=== PATIENT | female | born 1970 | race Caucasian/White ===

== ENCOUNTER 2017-08-02 12:02 | Emergency (ER) | payer BC, OTHER ==
[2017-08-02 12:10] VITALS: BP 108/54; PULSE 71; TEMP 98.1; BMI 28.5
--- NOTE | 2017-08-02 12:57 | PDOC ---
History of Present Illness - General Chief Complaint: Facial Droop Stated Complaint: FACIAL DROOP Time Seen by Provider: 08/02/17 12:25 History Source: Patient Exam Limitations: No Limitations - History of Present Illness Initial Comments: 08/02/17 12:52 This is a 46-year-old female with past medical history of Churchill's palsy who presents to the emergency department with left-sided facial droop since 9:10 AM. Patient states she woke up felt a sharp shooting pain in her left mandible and then reported progressive facial droop the left side. Patient denies change in speech. Patient does report numbness to the left side of the face and occasional numbness to her left arm and leg. Patient states for the past week she's been experiencing "congestion to her right ear for which she was supposed to be taking steroids. She has not taken steroids, she is due for surgery to remove a cyst on her left hand this Friday. She denies fevers, chills, blurry vision. Past History - Past Medical History Allergies/Adverse Reactions: Allergies Allergy/AdvReac Type Severity Reaction Status Date / Time No Known Allergies Allergy Verified 08/02/17 12:09 Home Medications: Ambulatory Orders NK [No Known Home Medication] 08/02/17 COPD: No Psychiatric Problems: Yes (ANXIETY) Other medical history: bells palsey - Suicide/Smoking/Psychosocial Hx Smoking History: Never smoked Have you smoked in the past 12 months: Yes Number of Cigarettes Smoked Daily: 0 (Smokes the water pipe) Information on smoking cessation initiated: No 'Breaking Loose' booklet given: 01/07/14 Hx Alcohol Use: No Drug/Substance Use Hx: No Substance Use Type: None Hx Substance Use Treatment: No Review of Systems - Review of Systems Able to Perform ROS?: Yes Is the patient limited Nepalese proficient: No Constitutional: No: Symptoms Reported HEENTM: Yes: See HPI Respiratory: No: Symptoms reported Cardiac (ROS): No: Symptoms Reported ABD/GI: No: Symptoms Reported : No: Symptoms Reported Musculoskeletal: No: Symptoms Reported Integumentary: No: Symptoms Reported Neurological: Yes: See HPI Endocrine: No: Symptoms Reported Hematologic/Lymphatic: No: Symptoms Reported *Physical Exam - Vital Signs Last Vital Signs Temp Pulse Resp BP Pulse Ox 98.1 F 71 20 108/54 99 08/02/17 12:03 08/02/17 12:03 08/02/17 12:03 08/02/17 12:03 08/02/17 12:03 - Physical Exam General Appearance: Yes: Appropriately Dressed. No: Apparent Distress Neck: positive: Trachea midline, Supple, Other (Left facial droop) Respiratory/Chest: positive: Lungs Clear, Normal Breath Sounds. negative: Respiratory Distress, Accessory Muscle Use Cardiovascular: positive: Regular Rhythm, Regular Rate. negative: Murmur Gastrointestinal/Abdominal: positive: Tender, Soft. negative: Normal Bowel Sounds Musculoskeletal: positive: Normal Inspection. negative: CVA Tenderness Extremity: positive: Normal Inspection Integumentary: positive: Normal Color, Dry, Warm Neurologic: positive: Fully Oriented, Alert, Normal Mood/Affect, Normal Response , Motor Strength 5/5, Responsive, Facial Droop, Other (Full sensation to bilateral upper and lower extremities to both medial and lateral aspects.) ED Treatment Course - RADIOLOGY Radiology Studies Ordered: Category Date Time Status HEAD CT WITHOUT CONTRAST [CT] Stat CT Scan 08/02/17 12:44 Ordered Medical Decision Making - Medical Decision Making 08/02/17 13:00 A/P: 46-year-old woman with past medical history Churchill's palsy presents emergency Department with left-sided facial droop starting at 9:10 AM. Cranial nerve examination within normal with the exception of facial nerve. Left facial palsy present. Patient with inability to fully close eyes against resistance. Full sensation noted to bilateral face Gait steady. 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 No erythema present. Left TM is within normal limits. External auditory canals clear and free of erythema or exudates. Lungs clear to auscultation bilaterally. NIHSS-0 Diagnosis Churchill's palsy Explained to the patient's that given that she had prodromal symptoms and neurodeficits are limited to facial nerve this is more than likely a Churchill's palsy. Patient expressed concern and is requesting a CAT scan. I'll perform a CAT scan to rule out intracranial etiology 08/02/17 14:34 CT of the head as read by Dr. Salguero: No acute intracranial abnormality. I will discharge the patient home to follow up with her primary doctor after her outpatient procedures done for steroid treatment. *DC/Admit/Observation/Transfer Diagnosis at time of Disposition: Churchill's palsy - Discharge Dispostion Disposition: HOME Condition at time of disposition: Stable Admit: No - Referrals - Patient Instructions Additional Instructions: Make an appointment with your primary doctor for reevaluation the next week. You may need steroids if the your surgical procedures completed this week. Return to emergency department for any numbness, tingling, change in speech, loss of strength, loss of balance, or any other concerns. - Post Discharge Activity
== END 2017-08-02 14:54 | disposition home or self-care (01) ==
LOC: JERFT 12:02
DX: G51.0 Bell's palsy (principal); F41.9 Anxiety disorder, unspecified
CPT/HCPCS: 70450-TC; 84703; 99281-25

== ENCOUNTER 2017-08-06 10:52 | Day surgery (SDC) | payer BC ==
[2017-08-05 12:02] VITALS: BMI 28.5
--- NOTE | 2017-08-06 08:06 | HP ---
Satellite [facility] - Chief Complaint Chief Complaint: left hand pain, mass History of Present Illness: left trigger thumb and mass History Source: Patient Limitations to Obtaining History: No Limitations - Past Medical History Allergies/Adverse Reactions: Allergies Allergy/AdvReac Type Severity Reaction Status Date / Time No Known Allergies Allergy Verified 08/02/17 12:09 ...LMP: 04/04/17 - Current Medications Current Medications: Home Medications Medication Instructions Recorded NK [No Known Home Medication] 08/02/17 Satellite Physical Exam - Physical Examination General Appearance: Well Nourished ENT: Clear Lung: Clear to auscultation Heart: Regular rate & rhythm Breasts: Soft Abdomen: Soft Extremities: No edema Satellite Impression/Plan - Impression/Plan Impression: left trigger thumb, mass Operative Procedure: left trigger thumb release, mass excision Date to be Performed: 08/06/17
[~2017-08-06 10:52] MED LIST: BUPIVACAINE HCL/PF 0.5% (5MG/ML) 10 ML VIAL IJ ONE; LIDOCAINE HCL 1%, 10 MG/ML (20ML VIAL) INF ONE; ceFAZolin SODIUM 1 GM VIAL IVPB ONE
[2017-08-06] MEDS ORDERED: ONDANSETRON 4 MG/2 ML VIAL IVPUSH PRN (11:27)
[2017-08-06] MEDS ORDERED: oxyCODONE HCL 5 MG TABLET PO PRN ×2 (11:27)
[2017-08-06] MEDS ORDERED: LACTATED RINGERS SOLUTION 1,000 ML IV SCH (11:30)
[2017-08-06] MEDS ORDERED: LIDOCAINE HCL 1%, 10 MG/ML (20ML VIAL) ONE (12:13)
[2017-08-06] MEDS ORDERED: BUPIVACAINE HCL/PF 0.5% (5MG/ML) 10 ML VIAL ONE (12:14)
[2017-08-06] MEDS ORDERED: PROPOFOL 20 ML ONE (12:31)
[2017-08-06] MEDS ORDERED: MIDAZOLAM HCL 2 MG/2 ML SINGLE DOSE VIAL ONE (12:31)
[2017-08-06] MEDS ORDERED: ceFAZolin SODIUM 1 GM VIAL ONE (13:13)
[2017-08-06] MEDS ORDERED: ceFAZolin SODIUM 1 GM VIAL IVPB ONE (13:13)
[2017-08-06] MEDS ORDERED: BUPIVACAINE HCL/PF 0.5% (5MG/ML) 10 ML VIAL IJ ONE (13:27)
[2017-08-06] MEDS ORDERED: LIDOCAINE HCL 1%, 10 MG/ML (20ML VIAL) INF ONE (13:27)
--- NOTE | 2017-08-06 13:45 | OP ---
Operative Note - Note: Operative Date: 08/06/17 Pre-Operative Diagnosis: left trigger thumb and cyst Operation: left trigger thumb release, tendon sheath excision, cyst excision Post-Operative Diagnosis: Same as Pre-op Surgeon: Nghia Dixon Anesthesiologist/REMOTE BROADCAST TECHNICIAN: Danish Mckeon Anesthesia: Local, MAC Specimens Removed: tendon sheath, cyst Estimated Blood Loss (mls): 0 Drains, Volume Out (mls): 0 Blood Volume Replaced (mls): 0 Fluid Volume Replaced (mls): 500 Operative Report Dictated: Yes
[2017-08-06 14:42] VITALS: TEMP 98
--- NOTE | 2017-08-06 14:56 | SPEC ---
DATE OF OPERATION: 08/06/2017 PREOPERATIVE DIAGNOSIS: Left trigger thumb and cyst. POSTOPERATIVE DIAGNOSIS: Left trigger thumb and cyst. PROCEDURE: Left trigger thumb release, tendon sheath excision, and cyst excision. SURGEON: Steve Mckenzie MD ASSISTANTS: None. 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 MAC anesthesia, local injection of 12 mL of 0.5% Marcaine and 1% lidocaine mix. DRAINS: None. COMPLICATIONS: None. SPECIMENS: Tendon sheath and mass/cyst, left thumb. FLUID REPLACEMENT: 500 mL. BLOOD LOSS: Minimal. BLOOD GIVEN: None. INDICATIONS: This patient is a 46-year-old female with a preoperative diagnosis of a left trigger thumb and mass/cyst over the A1 jo sheath. After understanding the potential risks, complications, alternatives, and benefits of surgical versus nonsurgical treatment, the patient elected to undergo this procedure. The patient was brought to the operating room, peripheral IV placed, IV sedation given. IV Ancef was given. A tourniquet was applied to the left upper arm and the left upper extremity was prepped and draped in sterile fashion. The entire case was done under 3.8 loupe magnification. A marking pen was utilized to flash out a longitudinal incision in an already existing skin crease at the base of the left thumb. Then 10 mL of 0.5% Marcaine mixed with 1% Lidocaine was injected in and around the incision. The left upper extremity was elevated, exsanguinated with an Esmarch bandage and the tourniquet inflated to 250 mmHg. A No. 15 scalpel blade was utilized to cut down through the skin. Subcutaneous hemostasis was achieved with the bipolar cautery. Additional dissection was done with Littler scissors until I was able to directly visualize the A1 jo sheath in its entirety. Self-retaining retractors were placed into the wound. A free air elevator was used to free up the tissue on the radial side, the ulnar side distally and proximally under better visualization of A1 jo sheath. Next, using a fresh No. 15 scalpel blade, I excised the central one-third of the A1 jo sheath and passed it off the field as specimen, tendon sheath, left thumb. I then completed the release, both distally and proximally, and brought the FDS and FDP tendons out through the wound with a Ragnell retractor. There were no abnormal points of compression. I was able to move the left thumb without the tendons bunching up at all. The area was then copiously irrigated and washed out. I then checked one more time to make sure there were no abnormal points of compression. None were seen and therefore closure was begun. One stitch using 4-0 Vicryl was used in the deep dermal layer. Skin was reapproximated with 4-0 Nylon sutures in a horizontal mattress fashion. The area was then washed and dried, covered with Xeroform gauze, sterile 4x4s, fluffs between the fingers, Webril and Coban. The tourniquet was taken down after a total tourniquet time of 15 minutes. There were no complications during the case. ADDENDUM: There was a small mass of about 3 mm x 3 mm over the A1 jo sheath on the volar aspect. It was spherical in nature and seemed to be a cyst. This was excised along with the A1 jo sheath. The patient tolerated the procedure quite well and was brought to the Ambulatory recovery Room in stable condition. STEVE MCKENZIE M.D. [id number]
[2017-08-06 16:29] VITALS: BP 104/61; PULSE 67
--- NOTE | 2017-08-08 13:54 | PATH ---
Surgical Pathology Report Patient Name: BRAYDEN JOSUE Med. Rec. #: [id number] /Age/Gender: 1970 (Age: 46) / F Account: [id number] Location: [facility] SURGICAL Taken: 08/06/2017 Received: 08/07/2017 Reported: 08/08/2017 Physicians: Nghia Dixon M.D. Specimen(s) Received CYST LEFT THUMB Clinical History Trigger finger left thumb, cyst left thumb Final Diagnosis SOFT TISSUE, LEFT THUMB, EXCISION: GANGLION CYST. Electronically Signed Rayray Dominique M.D. Gross Description Received in formalin labeled "cyst left thumb," is a 0.5 x 0.3 x 0.2 cm kuhn soft tissue fragment. The specimen is submitted in toto in one cassette. 08/07/201708/07/2017
== END 2017-08-06 15:30 | disposition home or self-care (01) ==
LOC: JASU-SURG 10:52
PROVIDERS: ATTEND Orthopaedic Surgery
PROC: 0LN80ZZ Release Left Hand Tendon, Open Approach (ICD-10-PCS; principal; 2017-08-06 13:30)
DX: M65.312 Trigger thumb, left thumb (principal); M67.441 Ganglion, right hand
CPT/HCPCS: 84703; 94760

== ENCOUNTER 2019-02-24 07:08 | Emergency (ER) | payer BC ==
[2019-02-24 07:15] VITALS: BP 119/66; PULSE 85; TEMP 98.4; BMI 32.9
--- NOTE | 2019-02-24 07:45 | PDOC ---
*Physical Exam - Vital Signs Last Vital Signs Temp Pulse Resp BP Pulse Ox 98.4 F 85 17 119/66 99 02/24/19 07:13 02/24/19 07:13 02/24/19 07:13 02/24/19 07:13 02/24/19 07:13 - Physical Exam Comments: 02/24/19 07:45 The patient was examined by [MARCELINO Rooney] under my direct supervision. I personally evaluated the patient. I concur with the above findings and the plan of care. Discharge - Discharge Information Problems reviewed: Yes Clinical Impression/Diagnosis: Vertigo URI (upper respiratory infection) Qualifiers: URI type: unspecified viral URI Qualified Code(s): J06.9 - Acute upper respiratory infection, unspecified Condition: Good Disposition: HOME - Additional Discharge Information Prescriptions: Fexofenadine/Pseudoephedrine [Cyndy-D 24 Hour Tablet] 1 each PO DAILY #14 tab.er.24h Meclizine HCl [Antivert -] 25 mg PO TID #21 tablet - Follow up/Referral Referrals: Elvis Mitchell MD [Primary Care Provider] - - Patient Discharge Instructions Patient Printed Discharge Instructions: Benign Paroxysmal Positional Vertigo Additional Instructions: The cause of your dizziness is most likely secondary to upper respiratory symptoms Take Cyndy-D and meclizine as instructed and follow-up with your PMD Return to the ER for worsening of symptoms - Post Discharge Activity Work/Back to School Note: Back to Work
[2019-02-24] MEDS ORDERED: MECLIZINE HCL 25 MG TABLET (FP) PO ONE (07:53)
--- NOTE | 2019-02-24 08:07 | PDOC ---
History of Present Illness - General Chief Complaint: Lightheaded Stated Complaint: DIZZY Time Seen by Provider: 02/24/19 07:29 History Source: Patient - History of Present Illness Timing/Duration: other (this am) Past History - Past Medical History Allergies/Adverse Reactions: Allergies Allergy/AdvReac Type Severity Reaction Status Date / Time No Known Allergies Allergy Verified 02/24/19 07:14 Home Medications: Ambulatory Orders Fexofenadine/Pseudoephedrine [Cyndy-D 24 Hour Tablet] 1 each PO DAILY #14 tab.er.24h 02/24/19 Meclizine HCl [Antivert -] 25 mg PO TID #21 tablet 02/24/19 Anemia: No Asthma: No Cancer: No Cardiac Disorders: No CVA: No COPD: No CHF: No Dementia: No Diabetes: No GI Disorders: No Disorders: No HTN: No Hypercholesterolemia: No Liver Disease: No Psychiatric Problems: Yes (ANXIETY) Seizures: No Thyroid Disease: Yes - Psycho Social/Smoking Cessation Hx Smoking History: Current every day smoker Have you smoked in the past 12 months: Yes Number of Cigarettes Smoked Daily: 0 (Smokes the water pipe) Information on smoking cessation initiated: Yes 'Breaking Loose' booklet given: 01/07/14 Hx Alcohol Use: No Drug/Substance Use Hx: No Substance Use Type: None Hx Substance Use Treatment: No Review of Systems - Review of Systems Constitutional: No: Chills, Fever HEENTM: Yes: Throat Pain. No: Blurred Vision Respiratory: No: Shortness of Breath Cardiac (ROS): No: Chest Pain ABD/GI: No: Nausea, Vomiting Neurological: Yes: Headache, Dizziness. No: Numbness, Paresthesia, Tingling, Weakness *Physical Exam - Vital Signs Last Vital Signs Temp Pulse Resp BP Pulse Ox 98.4 F 85 17 119/66 99 02/24/19 07:13 02/24/19 07:13 02/24/19 07:13 02/24/19 07:13 02/24/19 07:13 - Physical Exam General Appearance: Yes: Appropriately Dressed. No: Apparent Distress HEENT: positive: Normal ENT Inspection, Normal Voice, Other (minimal R conjunc injection). negative: Scleral Icterus (R), Scleral Icterus (L) Neck: positive: Supple. negative: Lymphadenopathy (R), Lymphadenopathy (L) Respiratory/Chest: positive: Lungs Clear, Normal Breath Sounds. 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 negative: Facial Droop (Perry intact , no drift, no ataxia), Disoriented Medical Decision Making - Medical Decision Making 02/24/19 07:56 48 yo F, h/o Churchill's palsy remotely, here with dizziness. Patient states she awoke with sensation of the room spinning this a.m. that seems to be worse with certain movements and upon walking. Also complaining of vague headache. No nausea, vomiting, visual changes, focal weakness, chest pain or shortness of breath. Patient states she was treated for a "throat infection" a month and a half ago with antibiotics but still continues to have some pain along w/ nasal congestion, facial pressure and ? post nasal drip. Denies rhinorrhea, f/c. No ear pain or tinnitus at this time see exam Vertigo Possible labyrinthitis 2/2 URI sxs Unlikely CVA Exam only remarkable for vertigo upon standing in facility, otherwise cerebellar intact and no focal deficit -trial of meclizine and reassess 02/24/19 08:32 Case discussed w/ ED attending who also evaluated patient and agrees that vertigo most likely benign positional and possibly related to URI symptoms. Recommend discharging with meclizine and Cyndy-D. Would hold off on antibiotics at this time and have patient follow-up with her PMD Discharge - Discharge Information Problems reviewed: Yes Clinical Impression/Diagnosis: Vertigo URI (upper respiratory infection) Qualifiers: URI type: unspecified viral URI Qualified Code(s): J06.9 - Acute upper respiratory infection, unspecified Condition: Good Disposition: HOME - Additional Discharge Information Prescriptions: Fexofenadine/Pseudoephedrine [Cyndy-D 24 Hour Tablet] 1 each PO DAILY #14 tab.er.24h Meclizine HCl [Antivert -] 25 mg PO TID #21 tablet - Follow up/Referral Referrals: Elvis Mitchell MD [Primary Care Provider] - - Patient Discharge Instructions Patient Printed Discharge Instructions: Benign Paroxysmal Positional Vertigo Additional Instructions: The cause of your dizziness is most likely secondary to upper respiratory symptoms Take Cyndy-D and meclizine as instructed and follow-up with your PMD Return to the ER for worsening of symptoms - Post Discharge Activity Work/Back to School Note: Back to Work
[2019-02-24] MEDS ORDERED: MECLIZINE HCL 25 MG TABLET (FP) ONE (08:11)
== END 2019-02-24 08:32 | disposition home or self-care (01) ==
LOC: JER 07:08
DX: R42 Dizziness and giddiness (principal); G51.0 Bell's palsy; F17.210 Nicotine dependence, cigarettes, uncomplicated; F41.9 Anxiety disorder, unspecified
CPT/HCPCS: 99281-25

== ENCOUNTER 2021-09-19 08:26 | Emergency (ER) | payer OTHER, BC ==
[2021-09-19 08:46] VITALS: BP 112/78; PULSE 84; TEMP 98.2; BMI 30.3
[2021-09-19] MEDS ORDERED: METHOCARBAMOL 500 MG TABLET PO ONE (09:28)
[2021-09-19] MEDS ORDERED: DEXAMETHASONE LIQUID 0.5 MG/5 ML PO ONE (09:28)
[2021-09-19] MEDS ORDERED: LIDOCAINE 5% TOPICAL PATCH TP ONE (09:28)
[2021-09-19] MEDS ORDERED: METHOCARBAMOL 500 MG TABLET ONE ×2 (09:35→09:50)
[2021-09-19] MEDS ORDERED: LIDOCAINE 5% TOPICAL PATCH ONE (09:35)
[2021-09-19] MEDS ORDERED: DEXAMETHASONE SOD PHOSPHATE 10 MG/1 ML VIAL ONE (09:35)
[2021-09-19 10:33] LABS: URINE APPEARANCE CLEAR; URINE BILIRUBIN NEGATIVE (NEGATIVE); URINE COLOR YELLOW; URINE GLUCOSE (UA) NEGATIVE (NEGATIVE); URINE KETONE NEGATIVE (NEGATIVE); URINE LEUK ESTERASE NEGATIVE (NEGATIVE); URINE NITRITE NEGATIVE (NEGATIVE); URINE PROTEIN NEGATIVE (NEGATIVE); URINE UROBILINOGEN 0.2 mg/dL (0.2-1.0)
[2021-09-19] MEDS ORDERED: LIDOCAINE PATCH REMOVAL MC ONE (22:00)
== END 2021-09-19 11:15 | disposition home or self-care (01) ==
LOC: JERFT 08:26 → JER 08:26 → JERFT 11:15
DX: M54.32 Sciatica, left side (principal)
CPT/HCPCS: 72100-TC-FY; 81003; 84703; 87086; 99284-25